=== PATIENT | female | born 1985 | race Caucasian/White ===

== ENCOUNTER → 2024-04-11 14:10 | Outpatient (REF) | payer BC, SELFPAY | LOC: HWWDC 14:10 | PROVIDERS: ATTENDING PHYSICIAN Nurse Practitioner Adult Health | DX: Z12.31 Encounter for screening mammogram for malignant neoplasm of breast (principal); E04.1 Nontoxic single thyroid nodule | CPT/HCPCS: 76536; 77063; 77067 ==